=== PATIENT | female | born 1965 | race Caucasian/White ===

== ENCOUNTER 2016-11-19 10:22 | Emergency (ER) | payer OTHER ==
[2016-11-19] MEDS ORDERED: NS 1,000 ML IV ONE (11:13)
[2016-11-19] MEDS ORDERED: SUMAtriptan 6 MG/0.5 ML VIAL SC ONE (11:17)
[2016-11-19] MEDS ORDERED: KETOROLAC 15 MG/1 ML SDV IVP ONE (11:17)
[2016-11-19] MEDS ORDERED: ONDANSETRON 4 MG/2 ML VIAL IVP ONE (11:17)
--- NOTE | 2016-11-19 11:21 | EDPHY ---
H & P Stated Complaint: n/v/ sorto Time Seen by Provider: 11/19/16 11:18 HPI/ROS: HPI: 51-year-old female presents to emergency department with chief concern vomiting. Reports onset of vomiting upon awakening this morning associated with a migraine headache that is left-sided, 8/10, throbbing, associated with photophobia. Took a sumatriptan and threw it up. This headache is entirely consistent with other migraine headaches. Also reports sore throat, cough, nasal congestion that onset 4 days ago. Had a negative rapid strep at her primary care provider's office yesterday. Reports subjective fever. Denies dizziness, head trauma, visual changes, dysphagia, shortness of breath, chest pain, abdominal pain, urinary symptoms, back or flank pain. LMP today. ROS: 10 point review of systems is negative other than as stated in HPI Source: Patient Exam Limitations: No limitations - Personal History LMP (Females 10-55): Now Current Tetanus/Diphtheria Vaccine: Yes - Medical/Surgical History Hx Asthma: No Hx Chronic Respiratory Disease: No Hx Diabetes: No Hx Cardiac Disease: No Hx Renal Disease: No Hx Cirrhosis: No Hx Alcoholism: No Hx HIV/AIDS: No Hx Splenectomy or Spleen Trauma: No Other PMH: migraines - Family History Significant Family History: No pertinent family hx - Social History Smoking Status: Never smoked Alcohol Use: Rarely Drug Use: None Additional Social History: - Physical Exam Exam: Vital signs stable, reviewed by me General: Awake, alert, calm, cooperative. No acute distress. Head: Normalocephalic. Atraumatic. EENT: PERRLA. EOMI. No pallor or injection. Anicteric. No nystagmus. No injection. TMs intact bilaterally with normal landmarks. Minimal nasal congestion, mildly erythematous turbinates bilaterally. Oropharynx with mild erythema, no exudates, or lesions. Tonsils 2+ bilaterally, no exudates. Neck: Supple, nontender. No lymphadenopathy. Full range of motion. No meningismus. Respiratory: Breathing unlabored. Breath sounds equal bilaterally and clear to auscultation. No adventitious sounds. CV: Chest nontender, atraumatic. Heart rate regular. No murmur, distal pulses 2+ bilaterally. Brisk cap refill all extremities. GI: Abdomen soft, nontender. Bowel sounds normoactive and positive x4 quadrants. No guarding. : No suprapubic tenderness. No CVA or flank tenderness. Neuro: Alert. Oriented x 3. Speech clear. Nonfocal cranial nerves throughout. Sensation intact all extremities. Strength 5+ all extremities. Rapid alternating hand motions intact. Finger-nose intact. 3 of 3 objects at 5 minutes intact. Skin: Skin warm, dry, intact. No rashes, abrasions, or lacerations. Skin turgor normal. Extremities: Full range of motion in all 4 extremities. Constitutional: Initial Vital Signs Temperature (C) 36.7 C 11/19/16 10:25 Heart Rate 67 11/19/16 10:25 Respiratory Rate 18 11/19/16 10:25 Blood Pressure 105/72 11/19/16 10:25 O2 Sat (%) 99 11/19/16 10:25 O2 Delivery Mode Room Air Allergies/Adverse Reactions: No Known Allergies Allergy (Unverified 11/19/16 10:24) Home Medications: Medication Instructions Recorded IMITREX 11/19/16 Medical Decision Making ED Course/Re-evaluation: 1120:51-year-old female presents to emergency department with chief concern vomiting. She had onset of a migraine-like headache when she woke this morning. She has a history of migraines. This headache is entirely consistent with other migraine headaches. She took a sumatriptan and was unable to keep down. She has no neck stiffness. She has had no head trauma. She has no pain other than the headache and mild sore throat. Had a rapid strep that was negative a primary care office yesterday. IV started. Normal saline hung. Patient given 4 mg IV Zofran, 25 IV Benadryl, 15 IV Toradol, sumatriptan subcutaneously. Labs pending. 1220: Headache resolved. Nausea resolved. 1250: Tolerated p.o. without difficulty. Differential Diagnosis: Differential diagnosis includes but is not limited to and in no particular order migraine headache, viral syndrome, gastroenteritis, dehydration, metabolic derangement - Data Points Laboratory Results: Laboratory Results 11/19/16 11:05 11/19/16 11:05 11/19/16 11/19/16 11:05 11:05 WBC 2.87 10^3/uL L 10^3/uL (3.80-9.50) RBC 4.60 10^6/uL 10^6/uL (4.18-5.33) Hgb 14.4 g/dL g/dL (12.6-16.3) Hct 41.5 % % (38.0-47.0) MCV 90.2 fL fL (81.5-99.8) MCH 31.3 pg pg (27.9-34.1) MCHC 34.7 g/dL g/dL (32.4-36.7) RDW 12.4 % % (11.5-15.2) Plt Count 136 10^3/uL L 10^3/uL (150-400) MPV 10.2 fL fL (8.7-11.7) Neut % (Auto) 76.7 % H % (39.3-74.2) Lymph % (Auto) 15.7 % % (15.0-45.0) Hardin % (Auto) 7.0 % % (4.5-13.0) Eos % (Auto) 0.0 % L % (0.6-7.6) Baso % (Auto) 0.3 % % (0.3-1.7) Nucleat RBC Rel Count 0.0 % % (0.0-0.2) Absolute Neuts (auto) 2.20 10^3/uL 10^3/uL (1.70-6.50) Absolute Lymphs (auto) 0.45 10^3/uL L 10^3/uL (1.00-3.00) Absolute Monos (auto) 0.20 10^3/uL L 10^3/uL (0.30-0.80) Absolute Eos (auto) 0.00 10^3/uL L 10^3/uL (0.03-0.40) Absolute Basos (auto) 0.01 10^3/uL L 10^3/uL (0.02-0.10) Absolute Nucleated RBC 0.00 10^3/uL 10^3/uL (0-0.01) Immature Gran % 0.3 % % (0.0-1.1) Immature Gran # 0.01 10^3/uL 10^3/uL (0.00-0.10) Sodium 137 mEq/L mEq/L (134-144) Potassium 4.1 mEq/L mEq/L (3.5-5.2) Chloride 101 mEq/L mEq/L (97-110) Carbon Dioxide 26 mEq/l mEq/l (22-31) Anion Gap 10 mEq/L mEq/L (8-16) BUN 9 mg/dL mg/dL (7-23) Creatinine 0.6 mg/dL mg/dL (0.6-1.0) Estimated GFR > 60 Glucose 130 mg/dL H mg/dL (70-100) Calcium 9.3 mg/dL mg/dL (8.5-10.4) Medications Given: Discontinued Medications Diphenhydramine HCl (Benadryl Injection) 25 mg IVP EDNOW ONE Stop: 11/19/16 11:18 Last Admin: 11/19/16 11:34 Dose: 25 mg Sodium Chloride (Ns) 1,000 mls @ 0 mls/hr IV ONCE ONE PRN Reason: Wide Open Stop: 11/19/16 11:14 Last Admin: 11/19/16 11:13 Dose: 1,000 mls Ketorolac Tromethamine (Toradol) 15 mg IVP EDNOW ONE Stop: 11/19/16 11:18 Last Admin: 11/19/16 11:35 Dose: 15 mg Ondansetron HCl (Zofran) 4 mg IVP EDNOW ONE Stop: 11/19/16 11:18 Last Admin: 11/19/16 11:32 Dose: 4 mg Sumatriptan Succinate (Imitrex Sc Injection) 6 mg SC EDNOW ONE Stop: 11/19/16 11:18 Last Admin: 11/19/16 11:32 Dose: 6 mg Departure - Departure Disposition: Home, Routine, Self-Care Clinical Impression: Upper respiratory infection, Migraine Condition: Good Instructions: Migraine Headache (ED), Upper Respiratory Infection (ED) Additional Instructions: Plan: Drink plenty fluids Rest Follow up with primary care tomorrow for recheck without fail--When you call to schedule appointment, please let the office know you are an "ER follow up" appointment" Referrals: Liliane Schmitt MD [Primary Care Provider] - As per Instructions
[2016-11-19 11:31] LABS: % IMMATURE GRANULYOCYTES 0.3 % (0.0-1.1); ABSOLUTE IMMATURE GRANULOCYTES 0.01 10^3/uL (0.00-0.10); ADD DIFF? NO; ADD MORPH? NO; ADD SCAN? NO; ATYPICAL LYMPHOCYTE FLAG 70 (0-99); FRAGMENT RBC FLAG 0 (0-99); HEMATOCRIT 41.5 % (38.0-47.0); HEMOGLOBIN 14.4 g/dL (12.6-16.3); LEFT SHIFT FLG 20 (0-99); LIPEMIA HEMOLYSIS FLAG 90 (0-99); MEAN CELL HEMOGLOBIN 31.3 pg (27.9-34.1); MEAN CELL HEMOGLOBIN CONCENTR. 34.7 g/dL (32.4-36.7); MEAN CELL VOLUME 90.2 fL (81.5-99.8); MEAN PLATELET VOLUME 10.2 fL (8.7-11.7); PLATELET CLUMPS FLAG 0 (0-99); PLATELET COUNT 136 10^3/uL (150-400); RED CELL DISTRIBUTION WIDTH 12.4 % (11.5-15.2)
[2016-11-19 11:52] LABS: ANION GAP 10 mEq/L (8-16); CALCIUM 9.3 mg/dL (8.5-10.4); CARBON DIOXIDE 26 mEq/l (22-31); CHLORIDE 101 mEq/L (97-110); CREATININE 0.6 mg/dL (0.6-1.0); GLOMERULAR FILTRATION RATE > 60; GLUCOSE 130 mg/dL (70-100); POTASSIUM 4.1 mEq/L (3.5-5.2); SODIUM 137 mEq/L (134-144)
[2016-11-19 13:06] VITALS: BP 113/72; PULSE 70; RESP 16; TEMP 97.5; O2SAT 96
== END 2016-11-19 13:06 | disposition home or self-care (01) ==
DX: J06.9 Acute upper respiratory infection, unspecified (principal); G43.909 Migraine, unspecified, not intractable, without status migrainosus
CPT/HCPCS: 96374; J1200; J1885; J2405; J3030